=== PATIENT | female | born 1955 | race African-American/Black ===

== ENCOUNTER 2020-02-18 08:55 | Inpatient (IN) | payer MEDICARE, OTHER ==
[~2020-02-18] VITALS: Ht 167.6 cm; Wt 49.9 kg
--- NOTE | 2020-02-18 09:15 | NUR ---
DENTAL INTERNSHIP NOTE- PT ADMITTED TO [facility] FOR 5150 DTS DTO. PT ARRIVED VIA GURNEY ACCOMPANIED BY TWO AMBULANCE STAFF. ON FACE TO FACE ASSESSMENT, PT IS SMALL THIN ELDERLY WOMAN WHO IS VERY OPPOSITIONAL TO DIRECTION AND CARE. PT AGGRESSIVE AND USING PROFANITY, CLEARLY PARANOID AND DELUSIONAL. ORIENTED TO PERSON PLACE ONLY. VS- BP- 100/60, HR- 46, RR- 18, T- 98.0, SATURATION 94% RA. PT REFUSING ACCU-CHECK AND MRSA SWAB. SHE IS 5' 6" AND 110 POUNDS. PT REFUSES SKIN CHECK THOUGH WHEN CHANGING INTO GOWN, NOTHING WAS APPARENT. SKIN SEEMS INTACT. POOR DENTITION NOTED. PT MALODOROUS. PT HAS DX OF SCHIZOPHRENIA. STATED SHE WAS 'KIDNAPPED' BY THE POLICE 'IN THEIR FUNKY [place]AG[place] THEY COME AND COME" AGITATED AND DIFFICULT TO MANAGE. ID WRISTBAND REFUSED PLACEMENT. TAPED TO FOOT OF BED FRAME IN CLEAR SITE OF STAFF. DENIES SI HI AH VH. "I AINT HURTING NO ONE" FOOD BROUGHT FOR PT. NOTIFIED OF ADMISSION. ORDERS RECEIVED AND CARRIED OUT. PT BELONGINGS PLACED IN LOCKER. PT RIGHTS HANDBOOK PLACED ON BEDSIDE TABLE. PROVIDE THERAPEUTIC ENVIRONMENT. MONITOR FOR SAFETY
[2020-02-18] MEDS ORDERED: BLOOD SUGAR DIAGNOSTIC 1 EACH STRIP IN ONE (09:30)
[2020-02-18] MEDS ORDERED: MAGNESIUM HYDROXIDE 30 ML UDC PO PRN (09:30)
[2020-02-18] MEDS ORDERED: TEMAZEPAM 7.5 MG CAPSULE PO PRN (09:30)
[2020-02-18] MEDS ORDERED: ACETAMINOPHEN 325 MG TABLET PO PRN (09:30)
[2020-02-18] MEDS ORDERED: MAG HYDROX/AL HYDROX/SIMETH 30 ML UDC PO PRN (09:30)
[2020-02-18] MEDS ORDERED: LORAZEPAM 0.5 MG TABLET PO PRN (09:30)
--- NOTE | 2020-02-18 12:30 | NUR ---
RN NOTE- PT AGITATED IN ROOM. DR WILLETT AT UNIT TO ASSESS. PT W BRADYCARDIA . ORDERED EKG WHICH PT REFUSED. PT ANXIOUS IN ROOM THREATENING POSTURING. ROOM MATE OUT IN BYERS STATING "IM SCARED" DR WILLETT ORDERED RX. WILL TRY TO GIVE PO RX FOR AGITATION./
--- NOTE | 2020-02-18 12:45 | NUR ---
RT Pt is very agitated, uncooperative, and refusing EKG at this time. Dr. Herrera was in the room and explained procedure to pt and pt is still refusing EKG.
[2020-02-18] MEDS ORDERED: OLANZAPINE 10 MG VIAL IM ONE (13:30)
--- NOTE | 2020-02-18 13:40 | NUR ---
RN NOTE- PT AGITATED REFUSING PO RX. THREATENING POSTURING. ZYPREXA 5 MG IM GIVEN W STAFF MALE AND FEMALE ASSIST. PT COMBATIVE. WILL MONITOR VS. AND MONITOR FOR SAFETY
--- NOTE | 2020-02-18 13:47 | NUR ---
SW Initial Discharge Plan: Patient is currently homeless and will require a placement. Pt contacted pt's mother Yeni ([phone]) and left a voicemail. This flex o writer operator will work with the MD to help coordinate discharge plan.
--- NOTE | 2020-02-18 13:47 | NUR ---
SW Family Contact: This lyric writer contacted pt's mother Yeni ([phone]) to gather collateral, however, she was unavailable and this lyric writer left a voicemail.
--- NOTE | 2020-02-18 14:38 | NUR ---
HENRI Family Contact: This telegraphic typewriter operator received a phone call from pt's brother Deonte Peters ([phone]) who stated he has not heard from his sister for about a year or so. He stated pt left and was residing alone. He stated she has been in and out of facilities and will require another facility. Per brother, he stated she hasn't been involved in her care, but francisca Addendum: 02/18/20 at 1439 by HENRI CHRISTENSEN Per brother, he stated she hasn't been involved in her care, but would want to know when pt will be discharged.
--- NOTE | 2020-02-18 15:14 | NUR ---
RN NOTE- PT REQUESTED AND WAS GIVEN ANOTHER LUNCH TRAY. CURRENTLY SLEEPING QUIETLY IN BED
--- NOTE | 2020-02-18 16:32 | NUR ---
RN-CO: PATIENT DENIED ANY HOME MEDICATIONS.
[2020-02-18] MEDS ORDERED: OLANZAPINE 5 MG TABLET PO SCH (21:00)
--- NOTE | 2020-02-18 21:59 | NUR ---
GPS RN NOTES: RECEIVED PT LAYING ON BED, COVERED WITH BED SHEET FROM HEAD TO TOE, AGITATED, UNCOOPERATIVE, IRRITABLE, HYPERVERBAL, DISORGANIZED, SUSPICIOUS, CONFUSED, ANXIOUS, LABILE. REFUSED V/S, WILL NOT LET STAFF GET CLOSE TO HER, YELLING. NO S/S OF DISTRESS AT THIS TIME. BED IN LOW POSITION AND LOCKED, CALL LIGHT WITHIN REACH. WILL CONTINUE TO MONITOR Q15 MINS AND Q1 HR FOR SAFETY, MOOD, AND BEHAVIOR.
--- NOTE | 2020-02-18 22:00 | NUR ---
GPS RN NOTES: PT REFUSED 2100 OLANZAPINE 5MG 1TAB PO ORDERED. PT WAS AGITATED, UNCOOPERATIVE, YELLING AT STAFF, REFUSING REDIRECTION. WILL CONTINUE TO MONITOR.
--- NOTE | 2020-02-19 06:38 | NUR ---
GPS RN CLOSING NOTES: PT AWAKE A/O 1X. SLEPT FOR 7 HR THIS SHIFT. PT WAS NON COMPLIANT WITH MEDS AND POC THIS SHIFT. PT WAS HOSTILE, AGITATED, LOUD AND VERBALLY AGGRESSIVE TOWARDS STAFF. REFUSED PM V/S AND AM LAB. NO S/S OF DISTRESS AT THIS TIME. RESPIRATION EVEN AND UNLABORED WITH EQUAL RISE AND FALL OF THE CHEST ON ROOM AIR. WILL CONTINUE TO MONITOR AND ENDORSE TO AM SHIFT.
[2020-02-19] MEDS ORDERED: OLANZAPINE 10 MG VIAL IM STA (08:38)
[2020-02-19] MEDS: OLANZAPINE 5 MG/TAB.RAPDIS PO SCH ×2 (08:49→21:00)
--- NOTE | 2020-02-19 08:49 | NUR ---
GPS RN NOTE: PATIENT REFUSING VSS MORNING MEDICATIONS , SCREAMING, YELLING, THROWING TABLES SLAMMING DOOR, VERBALLY ABUSIVE TOWARDS STAFF, UNABLE TO CONTROL BEHAVIOR, DR WILLETT NOTIFIED WITH STAT ORDER OR ZYPREXA 5 MG IM ONCE ORDER PLACED AND CARED OUT, MEDICATIONS GIVEN TO PT . PATIENT TOLERATED WELL. WILL CONTINUE MONITORING FOR SAFETY AND BEHAVIOR Q 15 MIN.
--- NOTE | 2020-02-19 11:00 | NUR ---
RN-CO: PATIENT WAS OFFERED TO HAVE FLU AND PNA VACCINE THIS MORNING BUT SHE REFUSED AND GET AGITATED AND STATED " I DON'T NEEDS THOSE VACCINE!"
--- NOTE | 2020-02-19 12:01 | NUR ---
rn-co: Offered again flu and PNA vaccine and screamed "no" and slammed the door.
--- NOTE | 2020-02-19 12:41 | NUR ---
HENRI Coordination of Care: This proposal lead writer sent clinicals to Félix millard ([phone]) and sent pt's clinicals: H & P notes, medication list, and laboratory.
--- NOTE | 2020-02-19 13:02 | NUR ---
HENRI Initial Discharge Plan: This medical underwriter received a call from admin from [facility] ([phone]) who stated pt is accepted.
--- NOTE | 2020-02-19 21:30 | NUR ---
GPS-RN NOTE: MEDICATION REFUSAL PATIENT REFUSED SCHEDULED ZYPREXA ZYDIS FOR TONIGHT. EDUCATED PT REGARDING THE IMPORTANCE OF MEDICATION COMPLIANCE. PT CONTINUED TO REFUSE X3. PATIENT STATED, "NO, I DON'T WANT IT". WILL CONTINUE TO MONITOR.
[2020-02-20] MEDS: OLANZAPINE 5 MG/TAB.RAPDIS PO SCH ×2 (08:24→21:00)
--- NOTE | 2020-02-20 14:14 | NUR ---
GPS RN NOTE: PT IN THE ROOM ISOLATIVE, REFUSED MEDICATIONS EXPLAIN RISK AND BENEFITS PT YELLED " I DONT TAKE MEDICATIONS" MD AWARE. PATIENT UNCOOPERATIVE,IRRITABLE,HYPERVERBAL,DISORGANIZED, SUSPICIOUS, CONFUSED, ANXIOUS, LABILE. REFUSED V/S, YELLING WHEN APPROACH REFUSED SKIN ASSESSMENT BED IN LOW POSITION AND LOCKED, CALL LIGHT WITHIN REACH. WILL CONTINUE TO MONITOR Q15 MINS AND Q1 HR FOR SAFETY, MOOD, AND BEHAVIOR.
--- NOTE | 2020-02-20 21:14 | NUR ---
GPS-RN NOTE: MEDICATION REFUSAL PATIENT REFUSED SCHEDULED ZYPREXA ZYDIS FOR TONIGHT. EDUCATED PATIENT REGARDING THE IMPORTANCE OF MEDICATION COMPLIANCE. PATIENT CONTINUED TO REFUSE X3. PATIENT STATED, "NO, I DON'T TAKE MEDICATION, GET OUT OF HERE". WILL CONTINUE TO MONITOR.
[2020-02-21] MEDS: OLANZAPINE 5 MG/TAB.RAPDIS PO SCH ×3 (08:53→21:00)
--- NOTE | 2020-02-21 09:30 | NUR ---
GPS/RN PT REFUSED AM MEDS AND VS OFFERED X3
[2020-02-21] MEDS: OLANZAPINE 10 MG VIAL IM PRN ×2 (10:26→21:08)
[2020-02-21 16:00] VITALS: BP 149/71
--- NOTE | 2020-02-21 21:10 | NUR ---
GPS RN NOTE: REFUSED ZYPREXA PO DUE. ZYPREXA 5 MG IM GIVEN W STAFF ASSIST AND SECURITY
[2020-02-22] MEDS: OLANZAPINE 5 MG/TAB.RAPDIS PO SCH ×2 (08:14→20:45)
[2020-02-22] MEDS: OLANZAPINE 10 MG VIAL IM PRN ×2 (08:25→21:01)
--- NOTE | 2020-02-22 21:05 | NUR ---
GPS-RN NOTE: PATIENT REFUSED SCHEDULED ZYPREXA PO FOR TONIGHT. ADMINISTERED ZYPREXA 5MG IM ON RIGHT GLUTEAL, TOLERATED WELL. ASSISTED WITH STAFF AND SECURITY. WILL CONTINUE TO MONITOR FOR PATIENT'S SAFETY.
[2020-02-23] MEDS: OLANZAPINE 5 MG/TAB.RAPDIS PO SCH ×2 (07:51→21:54)
[2020-02-23] MEDS: OLANZAPINE 10 MG VIAL IM PRN (08:37)
[2020-02-23] MEDS ORDERED: OLANZAPINE 10 MG VIAL IM STA (12:18)
[2020-02-23] MEDS ORDERED: HALOPERIDOL LACTATE INJ 5 MG/ML VIAL IM ONE (12:30)
[2020-02-23] MEDS ORDERED: diphenhydrAMINE HCL 50 MG/ML VIAL IM ONE (12:30)
--- NOTE | 2020-02-23 21:54 | NUR ---
Pt first refused prescribed medication Zyprexa 5mg 1 tab. Offered x3 and explained risk and benefits. Still refused. Then explained to pt if she does not take medication by mouth, she will be given a shot IM. After explaining pt states, "ok hurry up and give it to me and leave me alone". Pt took Zyprexa by mouth with 2nd nurse as witness. Charge nurse RN aware.
[2020-02-24] MEDS: OLANZAPINE 5 MG/TAB.RAPDIS PO SCH ×3 (08:39→21:45)
--- NOTE | 2020-02-24 10:45 | NUR ---
Pt refused EKG at this time. Rn aware. No distress noted.
--- NOTE | 2020-02-24 19:43 | NUR ---
GPS RN NOTES PATIENT IN BED, ASLEEP, EASILY AROUSED. ALERT AND ORIENTED X 1. PT IS UNCOOPERATIVE AND EASILY AGITATED. NONCOMPLIANT WITH MEDS. PT IS RIESED. BREATHING EVEN AND UNLABORED ON ROOM AIR. SHOWS NO SIGNS OF ACUTE RESPIRATORY DISTRESS, NO ACUTE PAIN. DENIES SI AND HI. SAFETY PRECAUTIONS IN PLACE. BED IN LOWEST POSITION, LOCKED, AND CALL LIGHT KEPT WITHIN REACH. WILL CONTINUE TO MONITOR.
[2020-02-25] MEDS: OLANZAPINE 5 MG/TAB.RAPDIS PO SCH (08:57)
--- NOTE | 2020-02-25 08:57 | NUR ---
GIVEN ATIVAN FOR AGITATION.
[2020-02-25] MEDS: clonazePAM 0.5 MG TABLET PO SCH ×2 (12:38→17:27)
--- NOTE | 2020-02-25 12:40 | NUR ---
HERE AND CLONOPIN ORDERED.
--- NOTE | 2020-02-25 12:58 | NUR ---
GIVEN CLONOPIN 0.5 MG PO.
[2020-02-25] MEDS ORDERED: LORAZEPAM 1 MG TABLET PO PRN (13:00)
[2020-02-25] MEDS: risperiDONE-M 0.5 MG TAB.RAPDIS PO SCH ×2 (13:24→17:27)
--- NOTE | 2020-02-25 13:29 | NUR ---
DR. WILLETT HERE AND ADDITIONALLY ADDED ZYPREXA AND RISPERDAL.INITIALLY PT. REFUSED.
--- NOTE | 2020-02-25 13:29 | NUR ---
ZYPREXA AND RISPERDAL GIVEN.
[2020-02-25] MEDS ORDERED: OLANZAPINE 5 MG/TAB.RAPDIS PO PRN (13:30)
[2020-02-25] MEDS ORDERED: LORAZEPAM 0.5 MG TABLET PO PRN (15:30)
[2020-02-25] MEDS: DIVALPROEX SODIUM 125 MG CAP.SPRINK PO SCH ×2 (17:00→17:28)
--- NOTE | 2020-02-25 18:27 | NUR ---
refused new med of depakote,but did take clonopin and risperdal.
[2020-02-26] MEDS: risperiDONE-M 0.5 MG TAB.RAPDIS PO SCH ×5 (09:00→18:54)
[2020-02-26] MEDS: DIVALPROEX SODIUM 125 MG CAP.SPRINK PO SCH ×4 (09:00→17:00)
[2020-02-26] MEDS: clonazePAM 0.5 MG TABLET PO SCH ×3 (09:00→17:00)
--- NOTE | 2020-02-26 09:23 | NUR ---
INITIALLY AFTER TWO ATTEMPTS AT MED ADM. PT. REFUSING ORAL MEDS,INCLUDING RISPERDAL.
[2020-02-26] MEDS: OLANZAPINE 10 MG VIAL IM PRN (11:00)
--- NOTE | 2020-02-26 11:00 | NUR ---
RN INTO PT. RM. TO GIVE ZYPREXA MED AND NOW PT. STATES SHE WILL TAKE PO RISPERDAL INSTEAD OF INJECTION.
--- NOTE | 2020-02-26 11:25 | NUR ---
GIVEN PO RISPERDAL AT THIS TIME.
--- NOTE | 2020-02-26 13:59 | NUR ---
GROUP THERAPY: SW encouraged pt to attend group therapy on this present day. Pt is verbally aggressive and is manic and hyperverbal. Pt refused and stated to SW, "what do you know about running a group." Pt continue to demonstrate aggressive behavior and is refusing to take Depakote Sprinkle.
--- NOTE | 2020-02-26 19:01 | NUR ---
reluctant to take meds all day.refusing depakote and clonopin,only taking risperdal with coaxing.
[2020-02-27] MEDS: risperiDONE-M 0.5 MG TAB.RAPDIS PO SCH ×3 (08:36→16:48)
[2020-02-27] MEDS: DIVALPROEX SODIUM 125 MG CAP.SPRINK PO SCH (08:40)
[2020-02-27] MEDS: clonazePAM 0.5 MG TABLET PO SCH ×2 (08:40→16:51)
--- NOTE | 2020-02-27 08:40 | NUR ---
GPS RN Note: Med refusal Patient took Risperdal but refused to take Depakote and Klonopin. Despite multiple attempts patient continues to refuse and states she "does not take medication". Will continue to monitor Q15 for mood, safety and behavior.
--- NOTE | 2020-02-27 20:00 | NUR ---
GPS RN NOTE: REFUSED VITAL SIGNS PATIENT REFUSED VITAL SIGNS X 3 DESPITE OF EXPLANATIONS. UNCOOPERATIVE, EASILY AGITATED, ANXIOUS & HYPERVERBAL. WILL CONTINUE TO MONITOR.
--- NOTE | 2020-02-27 21:30 | NUR ---
GPS RN NOTE: REFUSED SKIN ASSESSMENT PATIENT IS CONFUSED, FORGETFUL, EASILY AGITATED, PARANOID, AGGRESSIVE, MAKES RACIST COMMENTS, DISORGANIZED, REFUSED SKIN ASSESSMENT X 3 DESPITE OF RISKS & BENEFITS EXPLANATIONS. WILL CONTINUE TO MONITOR.
[2020-02-28] MEDS: risperiDONE-M 0.5 MG TAB.RAPDIS PO SCH (08:26)
[2020-02-28] MEDS: clonazePAM 0.5 MG TABLET PO SCH ×2 (09:00→17:00)
--- NOTE | 2020-02-28 11:44 | NUR ---
GROUP THERAPY: SW encouraged pt to attend group therapy on this present day. Pt yelled at SW stating, "get out of my room." Pt appears manic with labile mood.
[2020-02-28] MEDS ORDERED: risperiDONE-M 0.5 MG TAB.RAPDIS PO SCH (13:00)
--- NOTE | 2020-02-28 14:13 | NUR ---
GPS/RN-NOTES RECEIVED T.O ORDER FROM DR. WILLETT TO CHANGE RISPERDAL-M 3MG P.O TID TO REGULAR RISPERDAL 3MG P.O TID AND GIVE IT CRUSH TO THE PATIENT. NOTED AND CARRIED OUT.
[2020-02-28] MEDS: risperiDONE 1 MG TABLET PO SCH (17:13)
--- NOTE | 2020-02-28 20:44 | NUR ---
GPS RN NOTES PATIENT REFUSED VITAL SIGNS.
[2020-02-29] MEDS: risperiDONE 1 MG TABLET PO SCH ×2 (09:00→13:00)
[2020-02-29] MEDS: clonazePAM 0.5 MG TABLET PO SCH ×2 (09:00→16:58)
[2020-02-29] MEDS: OLANZAPINE 10 MG VIAL IM PRN ×4 (09:55→21:30)
--- NOTE | 2020-02-29 09:56 | NUR ---
RN NOTE: MEDICATIN REUFSAL PT REFUSED AM RISPERDAL AND KLONOPIN PO. ATTEMPTED TO EDUCATE PT RE IMPORTANCE OF MEDICATION COMPLIANCE. PT CONT'D TO REFUSE X 3. IM ZYPREXA ADMINISTERED TO RIGHT GLUTEUS WITHOUT COMPLICATION
--- NOTE | 2020-02-29 13:21 | NUR ---
RN NOTE: MEDICATION REFUSAL PT REFUSED AFTERNOON DOSE RISPERDAL. PT CON'T TO REFUSE X 3. PT EDUCATED RE IMPORTANCE OF MEDICATION COMPLIANCE.
[2020-02-29] MEDS: risperiDONE LIQUID 1 MG/ML ML PO SCH ×2 (16:00→21:00)
--- NOTE | 2020-02-29 16:58 | NUR ---
RN NOTE: MEDICATION REFUSAL PT REFUSED RISPERDAL 2MG PO LIQUID AND KLONOPIN TABLET PO. ATTEMPTED TO EDUCATED PT RE IMPORTANCE OF MEDICATION COMPLIANCE. PT CONT'D TO REFUSE X 3. "I DON'T NEED YOUR FUCKING MEDICATION. ARISTEO ALBERTS... ARISTEO ALBERTS... ARISTEO ALBERTS...". ZYPREXA IM TO BE GIVEN IN THE EVENT PT REFUSES RISPERDAL.
--- NOTE | 2020-02-29 17:56 | NUR ---
RN NOTE: IM ADMINISTRATION ZYPREXA 5MG IM ADMINISTERED TO RIGHT GLUT
--- NOTE | 2020-02-29 21:30 | NUR ---
GPS RN NOTE: ADMINISTERED ZYPREXA IM 5 MG ORDERED. WILL CONTINUE TO MONITOR.
--- NOTE | 2020-02-29 21:30 | NUR ---
GPS RN NOTE: MEDICATION REFUSAL PT. REFUSED SCHEDULED 2100 MEDICATION RISPERDAL LIQUID 2 MG. STATES" TO GET OUT OF MY ROOM." WILL CONTINUE TO MONITOR FOR SAFETY AND AND BEHAVIOR.
[2020-03-01] MEDS: risperiDONE LIQUID 1 MG/ML ML PO SCH ×3 (08:00→21:00)
[2020-03-01] MEDS: clonazePAM 0.5 MG TABLET PO SCH ×2 (09:00→17:00)
--- NOTE | 2020-03-01 09:09 | NUR ---
gps/rn pt refused am meds. offered x3. zyprexa 5mg im administered as ordered
[2020-03-01] MEDS: OLANZAPINE 10 MG VIAL IM PRN ×2 (09:11→21:01)
--- NOTE | 2020-03-01 12:24 | NUR ---
GPS/RN PT REFUSED TO TALK TO DR KIRK. STATES:'' I DON'T WANT THEM FOREIGNERS..."
--- NOTE | 2020-03-01 20:00 | NUR ---
GPS RN NOTE PATIENT REFUSED VITAL SIGNS TO BE CHECKED X 3 DESPITE OF RISKS & BENEFITS EXPLANATIONS, EASILY AGITATED, GETS AGGRESSIVE TOWARDS STAFF, UNCOOPERATIVE WITH ADL CARE. WILL CONTINUE TO MONITOR.
--- NOTE | 2020-03-01 21:03 | NUR ---
GPS RN NOTE: MEDICATION REFUSAL PATIENT REFUSED SCHEDULED 2100 MEDICATION RISPERDAL LIQUID 2 MG X 3 DESPITE OF RISKS & BENEFITS EXPLANATIONS. CHARGE NURSE ALSO ATTEMPTED TO OFFER RISPERDAL SYRUP PO BUT PATIENT CONTINUED TO REFUSE. USES FOUL LANGUAGE, EASILY AGITATED & AGGRESSIVE. ZYPREXA 5MG IM INJECTION GIVEN WITH SECURITY & CHARGE NURSE STAND BY FOR SAFETY. SNACKS WERE GIVEN & TOLERATED WELL BY THE PATIENT. WILL CONTINUE TO MONITOR FOR SAFETY AND AND BEHAVIOR.
--- NOTE | 2020-03-01 21:40 | NUR ---
GPS RN NOTE: REFUSED WEEKLY SKIN ASSESSMENT PT. REFUSED WEEKLY SKIN ASSESSMENT TONIGHT X 3. UNCOOPERATIVE, EASILY AGITATED & AGGRESSIVE, PARANOID, USES FOUL LANGUAGE TOWARDS STAFF. WILL CONTINUE TO MONITOR FOR ANY CHANGES.
--- NOTE | 2020-03-02 06:33 | NUR ---
GPS RN NOTE PATIENT REFUSED AM LABS DESPITE OF EXPLANATIONS.
[2020-03-02] MEDS: risperiDONE LIQUID 1 MG/ML ML PO SCH (08:00)
[2020-03-02] MEDS: clonazePAM 0.5 MG TABLET PO SCH (09:00)
[2020-03-02] MEDS: OLANZAPINE 10 MG VIAL IM PRN (09:36)
[2020-03-02] MEDS ORDERED: diphenhydrAMINE HCL 50 MG/ML VIAL IM PRN (12:30)
[2020-03-02] MEDS ORDERED: DIPHENHYDRAMINE HCL 12.5 MG/5 ML UDC PO PRN (12:30)
[2020-03-02] MEDS ORDERED: HALOPERIDOL LACTATE INJ 5 MG/ML VIAL IM PRN (12:30)
[2020-03-02] MEDS ORDERED: risperiDONE-M 0.5 MG TAB.RAPDIS PO SCH (13:00)
[2020-03-02] MEDS: risperiDONE-M 0.5 MG TAB.RAPDIS PO SCH ×2 (13:52→17:52)
[2020-03-03] MEDS: risperiDONE-M 0.5 MG TAB.RAPDIS PO SCH ×3 (08:16→17:44)
--- NOTE | 2020-03-03 11:44 | NUR ---
Individual Intervention with the pt and the MD: SW met with the pt at bedside with the MD present to discuss discharge planning. Pt became verbally aggressive and began cursing at the staff members. Pt kept stating that she wanted to go to the [facility] even though she does not have placement in that area. Pts insight and judgment appears to be impaired.
[2020-03-03 16:22] VITALS: BP 155/88
[2020-03-04 08:00] VITALS: BP 92/56
[2020-03-04] MEDS: risperiDONE-M 0.5 MG TAB.RAPDIS PO SCH (08:13)
--- NOTE | 2020-03-04 11:19 | NUR ---
Discharge Note: Pt was discharged to [facility] () located at [address] [place] [id number]; ([phone]). Pt was transported via [facility] (Trip #[id number]) at 11AM. There was no one to notify to about the pts discharge. Pt is a homeless patient. Upon discharge, the pt appeared to be in a dysphoric mood and presented with an agitated affect. Pt appeared to be alert and oriented x4 (time, place, self and situation). Pt denied both suicidal and homicidal ideation as well as auditory and visual hallucinations. Pt appears to be ambulatory with a steady gait. Pt appears to be disheveled and malodorous. Pt is appropriately dressed but the clothes are unwashed. Pt refused to sign the Choice of Vendor form and the Homeless waiver. Pt was provided with resources including shelters, food reid, showers, hot meals, mental health clinics, health clinics and substance abuse referrals. The multidisciplinary exit care form was done, printed, signed, and given to the patient. Pt will continue to be under the care of psychiatrist, Dr. Herrera, located at [address] [address]; and biofuels plant superintendent, Dr. Story, located at [address] [place] [address]; .
--- NOTE | 2020-03-04 11:40 | NUR ---
Family Contact: Pts brother, Deonte ([phone]), called the SW and stated that he wanted to be involved in the discharge for the pt. SW informed him of the pts placement and informed him that she is being discharged today.
--- NOTE | 2020-03-04 11:59 | NUR ---
CARRIER DRIVER NOTE : PATIENT ALERT ,VERBALLY RESPONSIVE ,DENIES SUICIDAL IDEATIONS ,DENIES HOMICIDAL IDEATIONS ,DENIES AUDITORY VISUAL HALLUCINATIONS ,AMBULATORY AND SELF CARE NO C/O PAIN ,MED COMPLIANT ,ALL BELONGINGS RETURNED TO PATIENT .REPORT GIVEN TO [facility] IN [facility] .VS STABLE .PATIENT LEFT WITH AMBULANCE.
== END 2020-03-04 11:56 | DRG 885 ==
LOC: GPS 08:56
PROVIDERS: ADMIT Psychiatry & Neurology Psychosomatic Medicine; ATTEND Nurse Practitioner Acute Care
DX: F25.0 Schizoaffective disorder, bipolar type (principal); E43 Unspecified severe protein-calorie malnutrition; Z68.1 Body mass index [BMI] 19.9 or less, adult; R64 Cachexia; F29 Unspecified psychosis not due to a substance or known physiological condition; F32.9 Major depressive disorder, single episode, unspecified; Z59.0 Homelessness; R00.1 Bradycardia, unspecified; Z73.6 Limitation of activities due to disability
CPT/HCPCS: J1200; J1630; J3490; Q0163